=== PATIENT | male | born 1955 | race Two or more races ===

== ENCOUNTER 2023-04-30 21:07 | Inpatient (IN) | payer MEDICAID, OTHER ==
[~2023-04-30] VITALS: Ht 165.1 cm; Wt 85.5 kg
[2023-04-30] MEDS ORDERED: HYDROcodone-ACET 10/325MG TAB PO ONE (21:45)
[2023-04-30 22:53] LABS: Urine Bacteria NONE SEEN /hpf (None Seen); Urine Blood Negative /uL (Negative); Urine WBC 1 /hpf (0 - 3)
[2023-04-30 23:00] LABS: Basophils # (auto) 0.1 10 ^3/uL (0-0.2); Eosinophils # (auto) 0.6 10 ^3/uL (0-0.8); Eosinophils % (auto) 5.3 % (0.0-7.0); Hematocrit 44.4 % (41.0-53.0); Hemoglobin 15.4 g/dL (13.5-17.5); Lymphocytes # (auto) 3.6 10 ^3/uL (0.4-5.4); Lymphocytes % (auto) 31.3 % (10.0-50.0); Mean Corpuscular Hemoglobin 32.9 pg (28.0-32.0); Mean Corpuscular Hgb Conc. 34.7 g/dL (32.0-36.0); Monocytes # (auto) 0.9 10 ^3/uL (0-1.3); Monocytes % (auto) 8.2 % (0.0-12.0); Neutrophils # (auto) 6.3 10 ^3/uL (1.6-8.6); Neutrophils % (auto) 54.2 % (37.0-80.0); Red Blood Cells 4.67 10^6/uL (4.5-5.90); White Blood Cell 11.6 10^3/uL (4.4-10.8)
[2023-04-30 23:18] LABS: Albumin 3.7 g/dL (3.4-5.0); Calcium 8.6 mg/dL (8.5-10.1); Potassium 3.9 mmol/L (3.5-5.1)
[2023-04-30 23:27] LABS: BUN/Creatinine Ratio 12.6 (10.0-20.0); Bilirubin, Total 0.2 mg/dL (0.2-1.0); Total Protein 6.9 g/dL (6.4-8.2)
[2023-05-01] MEDS ORDERED: cloNIDine HCL 0.1 MG TAB PO ONE (00:15)
[2023-05-01] MEDS ORDERED: HYDROcodone-ACET 5/325MG TAB PO PRN (00:30)
[2023-05-01] MEDS ORDERED: DOCUSATE SOD 100 MG CAP PO PRN (00:30)
[2023-05-01] MEDS ORDERED: ONDANSETRON HCL 4 MG/2 ML VIAL IV PRN (00:30)
[2023-05-01] MEDS ORDERED: ACETAMINOPHEN 325 MG TAB PO PRN (00:30)
[2023-05-01] MEDS ORDERED: hydrALAZINE HCL 20 MG/ML VL IV PRN (00:30)
[2023-05-01] MEDS ORDERED: MORPHINE SULFATE INJ 2 MG/ml SYRG IV PRN ×2 (00:30→04:45)
[2023-05-01] MEDS ORDERED: AZITHROMYCIN 500MG/ 250ML 250 ML IV ONE (00:30)
[2023-05-01] MEDS: SOD CHL 0.45% 1,000 ML IV SCH ×3 (01:51→16:59)
[2023-05-01] MEDS ORDERED: NITROGLYCERIN 0.4 MG SL TAB SL PRN (04:45)
[2023-05-01] MEDS: cefTRIAXone 1GM/50ML D5W 50 ML IV SCH (06:09)
[2023-05-01 07:21] LABS: Potassium 4.4 mmol/L (3.5-5.1)
[2023-05-01 07:22] LABS: Basophils # (auto) 0.1 10 ^3/uL (0-0.2); Basophils % (auto) 0.7 % (0.0-2.0); Eosinophils # (auto) 0.3 10 ^3/uL (0-0.8); Hematocrit 41.6 % (41.0-53.0); Hemoglobin 14.7 g/dL (13.5-17.5); Lymphocytes # (auto) 2.5 10 ^3/uL (0.4-5.4); Lymphocytes % (auto) 24.4 % (10.0-50.0); Mean Corpuscular Hemoglobin 33.4 pg (28.0-32.0); Mean Corpuscular Hgb Conc. 35.4 g/dL (32.0-36.0); Mean Corpuscular Volume 94.2 fL (80.0-100.0); Monocytes # (auto) 0.7 10 ^3/uL (0-1.3); Monocytes % (auto) 7.2 % (0.0-12.0); Neutrophils # (auto) 6.6 10 ^3/uL (1.6-8.6); Neutrophils % (auto) 64.7 % (37.0-80.0); Red Blood Cells 4.41 10^6/uL (4.5-5.90); Red Cell Distribution Width 12.9 % (11.8-14.3); White Blood Cell 10.2 10^3/uL (4.4-10.8)
[2023-05-01 07:36] LABS: Albumin 3.7 g/dL (3.4-5.0); BUN/Creatinine Ratio 12.9 (10.0-20.0); Bilirubin, Total 0.4 mg/dL (0.2-1.0); Calcium 8.5 mg/dL (8.5-10.1); Total Protein 7.2 g/dL (6.4-8.2)
[2023-05-01] MEDS: ENOXAPARIN SOD 40 MG/0.4 ML SYRINGE SC SCH (09:01)
[2023-05-01] MEDS: amLODIPine BESYLATE 5 MG TAB PO SCH (09:02)
[2023-05-01 21:23] VITALS: BP 155/76
[2023-05-01 22:00] VITALS: BP 155/76
[2023-05-01] MEDS: PANTOPRAZOLE 40 MG/10 ML VIAL INJ IV SCH (22:49)
[2023-05-01] MEDS: AZITHROMYCIN 500MG/ 250ML 250 ML IV SCH (23:00)
[2023-05-02] MEDS: SOD CHL 0.45% 1,000 ML IV SCH ×3 (00:30→16:30)
[2023-05-02 04:40] LABS: Potassium 3.9 mmol/L (3.5-5.1)
[2023-05-02 04:51] LABS: Albumin 3.1 g/dL (3.4-5.0); BUN/Creatinine Ratio 12.5 (10.0-20.0); Bilirubin, Total 0.6 mg/dL (0.2-1.0); Calcium 8.2 mg/dL (8.5-10.1); Total Protein 6.5 g/dL (6.4-8.2)
[2023-05-02 05:00] VITALS: BP 160/65
[2023-05-02] MEDS: cefTRIAXone 1GM/50ML D5W 50 ML IV SCH (06:05)
[2023-05-02 08:00] VITALS: BP 151/84
[2023-05-02 08:49] LABS: Basophils # (auto) 0.1 10 ^3/uL (0-0.2); Eosinophils # (auto) 0.4 10 ^3/uL (0-0.8); Hematocrit 44.3 % (41.0-53.0); Hemoglobin 15.3 g/dL (13.5-17.5); Lymphocytes # (auto) 3.2 10 ^3/uL (0.4-5.4); Mean Corpuscular Hemoglobin 32.9 pg (28.0-32.0); Mean Corpuscular Hgb Conc. 34.6 g/dL (32.0-36.0); Mean Corpuscular Volume 95.1 fL (80.0-100.0); Monocytes # (auto) 0.6 10 ^3/uL (0-1.3); Monocytes % (auto) 7.1 % (0.0-12.0); Neutrophils # (auto) 3.9 10 ^3/uL (1.6-8.6); Neutrophils % (auto) 47.9 % (37.0-80.0); Nucleated Red Blood Cells % 0.1 %; Red Blood Cells 4.66 10^6/uL (4.5-5.90); Red Cell Distribution Width 13.2 % (11.8-14.3); White Blood Cell 8.2 10^3/uL (4.4-10.8)
[2023-05-02 09:00] VITALS: BP 151/84
[2023-05-02] MEDS: PANTOPRAZOLE 40 MG/10 ML VIAL INJ IV SCH ×2 (09:22→21:47)
[2023-05-02] MEDS: ENOXAPARIN SOD 40 MG/0.4 ML SYRINGE SC SCH (09:23)
[2023-05-02] MEDS: amLODIPine BESYLATE 5 MG TAB PO SCH (09:23)
[2023-05-02] MEDS: AZITHROMYCIN 500MG/ 250ML 250 ML IV SCH (21:55)
[2023-05-02 22:00] VITALS: BP 146/91
[2023-05-03] MEDS: SOD CHL 0.45% 1,000 ML IV SCH ×2 (00:30→08:35)
[2023-05-03 05:00] VITALS: BP 145/79
[2023-05-03] MEDS: cefTRIAXone 1GM/50ML D5W 50 ML IV SCH (05:39)
[2023-05-03 07:08] LABS: Cholesterol 162 mg/dL (< 200); HDL Cholesterol 29 mg/dL (40-59); LDL Cholesterol 113 mg/dL (< 100); Lipase 267 U/L (73-393); Triglycerides 155 mg/dL (< 150)
[2023-05-03 09:00] VITALS: BP 139/76
[2023-05-03] MEDS: PANTOPRAZOLE 40 MG/10 ML VIAL INJ IV SCH (10:01)
[2023-05-03] MEDS: ENOXAPARIN SOD 40 MG/0.4 ML SYRINGE SC SCH (10:02)
[2023-05-03] MEDS: amLODIPine BESYLATE 5 MG TAB PO SCH (10:02)
[2023-05-03] MEDS ORDERED: PANT40T PO (11:01)
[2023-05-03] MEDS ORDERED: AZIT500T66 PO (11:01)
[2023-05-03 13:00] VITALS: BP 153/83
[2023-05-03 15:14] VITALS: BP 153/83
== END 2023-05-03 16:00 | disposition home or self-care (01) | DRG 282 ==
LOC: ER 21:07 → OVERFLOW 05-01 04:31 → CENTRAL 05-01 21:15
PROVIDERS: ADMIT Nurse Practitioner Family; ATTEND Family Medicine
DX: K85.90 Acute pancreatitis without necrosis or infection, unspecified (principal); J18.9 Pneumonia, unspecified organism; I16.0 Hypertensive urgency; I10 Essential (primary) hypertension; R91.1 Solitary pulmonary nodule; D72.829 Elevated white blood cell count, unspecified; Z87.891 Personal history of nicotine dependence
CPT/HCPCS: 36415; 71260; 74176; 80053; 80061; 81001; 82378; 83605; 83690; 84484; 85025; 86301; C9113; G0378; J0696

== ENCOUNTER 2023-07-08 10:22 | Emergency (ER) | payer MEDICAID ==
[~2023-07-08] VITALS: Ht 165.1 cm; Wt 81.8 kg
[~2023-07-08 10:22] MED LIST: AZIT500T66 PO; PANT40T PO
[2023-07-08] MEDS ORDERED: KETOROLAC TROMETH 60MG/2ML VIAL IM ONE (13:00)
[2023-07-08 13:01] VITALS: BP 174/97; PULSE 85; RESP 18; TEMP 98; O2SAT 94
[2023-07-08] MEDS ORDERED: IBUP-1456 PO (13:33)
[2023-07-08] MEDS ORDERED: GABA-1250 PO (13:33)
== END 2023-07-08 13:38 | disposition home or self-care (01) ==
LOC: ER 10:22
DX: M51.36 Other intervertebral disc degeneration, lumbar region (principal); M54.16 Radiculopathy, lumbar region; I10 Essential (primary) hypertension; G89.29 Other chronic pain; M54.50 Low back pain, unspecified; Z79.1 Long term (current) use of non-steroidal anti-inflammatories (NSAID); Z79.2 Long term (current) use of antibiotics; Z79.899 Other long term (current) drug therapy
CPT/HCPCS: 72100; 96372; 99283; J1885

== ENCOUNTER 2023-12-20 07:28 | Emergency (ER) | payer MEDICAID, OTHER ==
[~2023-12-20] VITALS: Ht 165.1 cm; Wt 86.4 kg
[~2023-12-20 07:28] MED LIST changes: +GABA-1250 PO; +IBUP-1456 PO
[2023-12-20 08:00] VITALS: BP 183/98; PULSE 77; RESP 14; TEMP 98.1; O2SAT 99
[2023-12-20] MEDS: methylPREDNISolone SOD SUCC 125 MG/2 ML VL IM ONE (08:26)
[2023-12-20] MEDS: KETOROLAC TROMETH 30 MG/ML 1ML VIAL IM ONE (08:27)
[2023-12-20] MEDS ORDERED: MELO7.5T7 PO (08:59)
== END 2023-12-20 09:05 | disposition home or self-care (01) ==
LOC: ER 07:28
DX: M54.59 Other low back pain (principal); I10 Essential (primary) hypertension; Z79.899 Other long term (current) drug therapy
CPT/HCPCS: 72100; 96372; 99284; J1885; J2930

== ENCOUNTER 2024-08-24 21:36 | Emergency (ER) | payer SELFPAY ==
[~2024-08-24] VITALS: Ht 165.1 cm; Wt 86.4 kg
[~2024-08-24 21:36] MED LIST changes: +MELO7.5T7 PO
[2024-08-24 22:15] VITALS: TEMP 97.9
[2024-08-24 22:22] LABS: Urine Bacteria None Seen /hpf (None Seen)
[2024-08-24] MEDS: cloNIDine HCL 0.1 MG TAB PO ONE (22:31)
[2024-08-24] MEDS: HYDROcodone-ACET 5/325MG TAB PO ONE (22:32)
[2024-08-24 22:46] LABS: Urine Blood Negative /uL (Negative); Urine Clarity Clear (Clear); Urine Color Light-Yellow (Yellow); Urine Mucus FEW (None Seen); Urine Protein, UAD Negative (Negative); Urine Specific Gravity 1.017 (1.001-1.035); Urine Urobilinogen Normal (Negative); Urine WBC 2 /hpf (0 - 3); Urine pH 6.5 (5.0-9.0)
[2024-08-24] MEDS ORDERED: IBU600T PO (23:29)
[2024-08-24] MEDS ORDERED: CYCL-838 PO (23:29)
[2024-08-24 23:53] VITALS: BP 162/99; PULSE 77; RESP 16; O2SAT 95
== END 2024-08-24 23:58 | disposition home or self-care (01) ==
LOC: ER 21:36
DX: M51.369 Other intervertebral disc degeneration, lumbar region without mention of lumbar back pain or lower extremity pain (principal); M54.50 Low back pain, unspecified; I10 Essential (primary) hypertension; M19.90 Unspecified osteoarthritis, unspecified site; Z79.1 Long term (current) use of non-steroidal anti-inflammatories (NSAID); Z79.899 Other long term (current) drug therapy
CPT/HCPCS: 72100; 81001

== ENCOUNTER 2025-04-28 07:46 | Emergency (ER) | payer SELFPAY ==
[~2025-04-28 07:46] MED LIST changes: +CYCL-838 PO; +IBU600T PO; +LISI20TA56 PO
[2025-04-28 07:54] VITALS: BP 188/118; PULSE 83; RESP 20; TEMP 97.4; O2SAT 97
--- NOTE | 2025-04-28 08:11 | ED.PDOC ---
History of Present Illness(SKN HPI Comments This is a 69 year old male presents to the ED with chief complaint of puncture wound. Patient reports that he was at work today pulling out a large piece of wood when all of a sudden, it got pulled out too quickly, puncturing his left ear lobe. Patient relays that he had a lot of bleeding at first, but it has now since resolved. Patient states his last Tetanus vaccine was 2-3 years ago. Patient denies any head injury, LOC, uncontrolled bleeding, dizziness, or ear pain. Chief Complaint: Puncture Wound Time Seen by MD: 08:07 History of Present Illness: Nurses Notes, Medications, Allergies Allergies: Coded Allergies: NO KNOWN ALLERGIES (Unverified , 04/30/23) Home Meds Active Scripts Cyclobenzaprine Hcl (CYCLOBENZAPRINE HCL) 7.5 Mg Tab, 7.5 MG PO Q8HP PRN for 5 Days, #15 TAB Prov:ANA JACINTO MD 08/24/24 Ibuprofen Micronized (MOTRIN TABLET) 600 Mg Tb, 600 MG PO TID PRN, #40 TAB *Black box warning-NSAIDS can increase risk of AL & hypertension, GI irritation, ulceration, bleed, perferation. Do not use post cardiac surgery. Use short duration/lowest effective dose. Prov:ANA JACINTO MD 08/24/24 Meloxicam (Meloxicam) 7.5 Mg Tab, 1 TAB PO DAILYPRN PRN for 30 Days, #30 TAB 0 Refills Prov:CONSTANCE CAREY MIXING PAN TENDER 12/20/23 Gabapentin (Gabapentin) 300 Mg Cap, 1 CAP PO TID, #30 CAP Prov:SHASTA DELANEY 07/08/23 Ibuprofen (Ibuprofen) 800 Mg Tab, 1 TAB PO TID, #30 TAB Prov:SHASTA DELANEY 07/08/23 Pantoprazole Sodium Sesquihydr (Pantoprazole Sodium) 40 Mg Tab, 40 MG PO BID, #60 TAB Prov:JENNA HOWELL MD 05/03/23 Azithromycin (Azithromycin) 500 Mg Tab, 1 TAB PO DAILY, #10 TAB Prov:JENNA HOWELL MD 05/03/23 Reported Medications Lisinopril (Lisinopril) 20 Mg Tab, 20 MG PO BID for 30 Days, MG 02/12/24 Meloxicam (Meloxicam) 7.5 Mg Tab, 1 TAB PO DAILY 02/12/24 Information Source: Patient Mode of Arrival: Ambulatory Severity: Moderate Timing: Hours Duration: Since onset Prehospital treatment: None Location: Ear Mechanism: Work Related Occurence: Outdoors Object: Other (Wood) Condition of Object: Dirty Retained Foreign Body: No Wound Type: Puncture Immunization Status of Animal: NA Tetanus: UTD Past Medical History PAST MEDICAL HISTORY: Arthritis, HTN Surgical History: Denies all surgeries Family History Family History: Reviewed,noncontributory to illness, No family hx of Cancer, No family hx of DM, No family hx of Heart katelynn, No family hx of HTN, No family hx ofKidney katelynn, No family hx of Liver katelynn, No family hx of Lung katelynn, No family hx of Stroke Social History Smoker: Non-Smoker Alcohol: Denies ETOH Use Drugs: Denies Drug Use Lives In: Home Constitutional: denies: chills, diaphoresis, fatigue, fever, malaise, sweats, weakness, others EENTM: denies: blurred vision, double vision, ear bleeding, ear discharge, ear drainage, ear pain, ear ringing, eye pain, eye redness, hearing loss, mouth pain, mouth swelling, nasal discharge, nose bleeding, nose congestion, nose pain, photophobia, tearing, throat pain, throat swelling, voice changes, others Respiratory: denies: cough, hemoptysis, orthopnea, SOB at rest, shortness of breath, SOB with excertion, stridor, wheezing, others Cardiovascular: denies: chest pain, dizzy spells, diaphoresis, Dyspnea on exertion, edema, irregular heart beat, left arm pain, lightheadedness, palpitations, PND, syncope, others Gastrointestinal: denies: abdomen distended, abdominal pain, blood streaked bowels, constipated, diarrhea, dysphagia, difficulty swallowing, hematemesis, melena, nausea, poor appetite, poor fluid intake, rectal bleeding, rectal pain, vomiting, others Genitourinary: denies: burning, dysuria, flank pain, frequency, hematuria, incontinence, penile discharge, penile sore, pain, testicle pain, testicle swelling, urgency, others Neurological: denies: dizziness, fainting, headache, left sided numbness, left sided weakness, numbness, paresthesia, pre-existing deficit, right sided numbness, right sided weakness, seizure, speech problems, tingling, tremors, weakness, others Musculoskeletal: denies: back pain, gout, joint pain, joint swelling, muscle pain, muscle stiffness, neck pain, others Integumetry: reports: wounds (Left ear puncture wound); denies: bruises, change in color, change in hair/nails, dryness, laceration, lesions, lumps, rash, others Allergic/Immunocompromised: denies: Difficulty Healing, Frequent Infections, Hives, Itching, others Hematologic/Lymphatic: denies: anemia, blood clots, easy bleeding, easy bruising, swollen glands, others Endocrine: denies: excessive hunger, excessive sweating, excessive thirst, excessive urination, flushing, intolerance to cold, intolerance to heat, unexplained weight gain, unexplained weight loss, others Psychiatric: denies: anxiety, bipolar disorder, depression, hopeless, panic disorder, schizophrenia, sleepless, suicidal, others All Other Systems: Reviewed and Negative Physical Exam General Appearance: No Apparent Distress, Normal HEENT: Normal ENT Inspection, Pharynx Normal, TMs Normal Neck: Full Range of Motion, Non-Tender, Normal, Normal Inspection Respiratory: Chest Non-Tender, Lungs Clear, No Accessory Muscle Use, No R espiratory Distress, Normal Breath Sounds Cardiovascular: No Edema, No JVD, No Murmur, No Gallop, Normal Peripheral Pulses, Regular Rate/Rhythm Breast Exam: Deferred Gastrointestinal: No Organomegaly, Non Tender, No Pulsatile Mass, Normal Bowel Sounds, Soft Genitalia: Deferred Pelvic: Deferred Rectal: Deferred Extremities: No calf tenderness, Normal capillary refill, Normal inspection, Normal range of motion, Non-tender, No pedal edema Musculoskeletal : Apperance: Normal Neurologic: Alert, radio rigger II-XII nml as Tested, No Motor Deficits, Normal Affect, Normal Mood, No Sensory Deficits Cerebellar Function: Normal Reflexes: Normal Skin: Dry, Normal Color, Warm, Wounds (Superficial puncture wound noted to left ear lobe) Lymphatic: No Adenopathy Was a procedure done? Was a procedure done?: No Differential Diagnosis (INTG) Differential Diagnosis: Abrasion, Hematoma, Laceration, Puncture Wound X-Ray, Labs, Meds, VS Vital Signs Date Time Temp Pulse Resp B/P (MAP) Pulse Ox O2 Delivery O2 Flow Rate FiO2 04/28/25 07:54 97.4 83 20 188/118 (141) 97 97.4 Time of 1ST Reevaluation: 09:07 Reevaluation 1ST: Unchanged Patient Education/Counseling: Diagnosis, Treatment, Prognosis, Need For Follow Up Family Education/Counseling: No Family Present Comments PT HAS A SMALL SUPERFICIAL LACERATION ON THE LEFT EAR LOBE. HE IS STABLE FOR DISCHARGE. HIS TDAP IS UP TO DATE Additional Information Previous visits reviewed: 08/24/24 for lumbosacral pain The following tests were ordered, and results were reviewed by me: None Additional Information was gathered from interviewing the following independent historians: None I reviewed and agreed with the following test results read by other providers: None I discussed treatment and results with medical personnel and: patient Comprehensive systems review obtained and negative except for what is stated in the HPI. SEPSIS Sepsis Screen Date sepsis recognized/suspect: Apr 28, 2025 Time Sepsis recognized/suspect: 754 Recent Procedure: No On Antibiotic Therapy: No Respiratory Rate >20: No Heart Rate >90: No Temp<36 C (96.8 F) or >38.3 C: No SBP <90 or MAP <65 mmHG: No New Acute Mental Status Change: No Is the patient on CPAP, BIPAP,: No Vital Signs Date Time Temp Pulse Resp B/P (MAP) Pulse Ox O2 Delivery O2 Flow Rate FiO2 04/28/25 07:54 97.4 83 20 188/118 (141) 97 97.4 Departure 1 Departure Time of Disposition: 09:27 Impression: Primary Impression: Abrasion Disposition: 01 HOME / SELF CARE / HOMELESS Condition: Good e-Prescriptions [id number] (Neosporin Original) Original Oin 1 IN EX BID for 1 Day, #1 OIN Prov: ANA JACINTO MD 04/28/25 Discharged With: Self Critical Care Note Critical Care Time?: No Stability Stability form required: No Heart Score Heart Score: Heart Score Response (Comments) Value History N/A 0 EKG N/A 0 Age N/A 0 Risk Factors N/A 0 Troponin N/A 0 Total 0 I personally scribed for ANA JACINTO MD ([email or web address]) on 04/28/25 at 08:11. Electronically submitted by Jonathan Gibbs ([email or web address]). ANA JACINTO MD Apr 28, 2025 08:11
[2025-04-28] MEDS ORDERED: NEOM-48 EX (09:28)
== END 2025-04-28 12:19 | disposition home or self-care (01) ==
LOC: ER 07:50
DX: S00.412A Abrasion of left ear, initial encounter (principal); I10 Essential (primary) hypertension; M19.90 Unspecified osteoarthritis, unspecified site; Z79.1 Long term (current) use of non-steroidal anti-inflammatories (NSAID); Z79.899 Other long term (current) drug therapy; X58.XXXA Exposure to other specified factors, initial encounter; Y93.89 Activity, other specified; Y92.89 Other specified places as the place of occurrence of the external cause; Y99.8 Other external cause status